=== PATIENT | female | born 1995 | race Caucasian/White ===

== ENCOUNTER 2019-06-12 09:09 | Day surgery (SDC) | payer OTHER ==
[~2019-06-12] VITALS: Ht 157.5 cm; Wt 66.6 kg
[~2019-06-12 09:09] MED LIST: LIDOCAINE 1%-EPI 1:100K, 20ML ONE; ROPIvacaine/PF 0.5%, 30 ML ONE
[2019-06-12] MEDS ORDERED: birth control PO (09:49)
[2019-06-12] MEDS ORDERED: LACTATED RINGERS 1,000 ML IV SCH (09:49)
[2019-06-12 09:51] VITALS: BP 122/77
[2019-06-12] MEDS ORDERED: FENTANYL PF 100 MCG/2ML ONE (09:51)
[2019-06-12] MEDS ORDERED: MIDAZOLAM 1 MG/ML, 2ML ONE (09:51)
[2019-06-12 09:55] VITALS: BP 122/77
[2019-06-12 09:58] LABS: HCG UR SG 1.023 (1.003-1.030)
[2019-06-12] MEDS ORDERED: GABAPENTIN 300 MG CAPSULE PO ONE (10:00)
[2019-06-12] MEDS ORDERED: ACETAMINOPHEN 500 MG TABLET PO ONE (10:00)
[2019-06-12] MEDS ORDERED: SCOPOLAMINE 1MG PATCH TD ONE (10:19)
[2019-06-12] MEDS ORDERED: SCOPOLAMINE 1MG PATCH TD SCH (10:30)
[2019-06-12] MEDS ORDERED: PROPOFOL 50 ML ONE (11:06)
[2019-06-12] MEDS ORDERED: DEXAMETHASONE 4 MG/ML, 1ML ONE (11:23)
[2019-06-12] MEDS ORDERED: CEFAZOLIN 1,000 MG ONE (11:23)
[2019-06-12] MEDS ORDERED: PROPOFOL 10 MG/ML, 20ML ONE (11:23)
[2019-06-12] MEDS ORDERED: LIDOCAINE-MPF 2% ,5ML ONE (11:23)
[2019-06-12] MEDS ORDERED: KETOROLAC 30 MG/1 ML ONE (11:23)
[2019-06-12] MEDS ORDERED: ONDANSETRON 2MG/ML, 2ML ONE (11:23)
[2019-06-12] MEDS ORDERED: OXYcodone 5 MG/5 ML ORAL.SOL UDC PO PRN (11:30)
[2019-06-12] MEDS ORDERED: FENTANYL PF 100 MCG/2ML IV PRN (11:30)
[2019-06-12] MEDS ORDERED: HYDROmorphone 2 MG/ML, 1ML IVPush PRN (11:30)
[2019-06-12] MEDS ORDERED: PROMETHAZINE 25 MG/ML, 1ML IV PRN (11:30)
[2019-06-12] MEDS ORDERED: MIDAZOLAM 1 MG/ML, 2ML IV PRN (11:30)
[2019-06-12] MEDS ORDERED: ALBUTEROL/IPRATROPIUM 2.5MG/0.5MG, 3 ML NPPB PRN (11:30)
[2019-06-12] MEDS ORDERED: MEPERIDINE/PF 25MG/ML,1ML ONE ×2 (11:41→11:58)
[2019-06-12] MEDS: MEPERIDINE/PF 25MG/ML,1ML IVPush PRN ×2 (11:45→12:04)
[2019-06-12] MEDS ORDERED: OXYcodone 5 MG/5 ML ORAL.SOL UDC ONE (12:08)
== END 2019-06-12 14:10 | disposition home or self-care (01) ==
LOC: OR 09:09 → OUT 14:10
PROVIDERS: ATTEND Orthopaedic Surgery
DX: S83.251A Bucket-handle tear of lateral meniscus, current injury, right knee, initial encounter (principal); M65.861 Other synovitis and tenosynovitis, right lower leg; F41.9 Anxiety disorder, unspecified; Z88.0 Allergy status to penicillin; X50.1XXA Overexertion from prolonged static or awkward postures, initial encounter; Y93.89 Activity, other specified; Y92.89 Other specified places as the place of occurrence of the external cause; Y99.8 Other external cause status
CPT/HCPCS: 29881; 81025; J0690; J1100; J1885; J2175; J2250; J2405; J2704; J2795; J3010; J3490; J7120